=== PATIENT | male | born 1945 | race Caucasian/White ===

== ENCOUNTER 2021-10-12 12:28 | Day surgery (SDC) | payer MEDICARE, BC ==
[2021-10-11 14:05] LABS: BASOPHILS % (AUTO) 0.8 % (0-1); EOSINOPHILS # (AUTO) 0.3 X10'3 (0-0.9); EOSINOPHILS % (AUTO) 5.8 % (0-6); LYMPHOCYTES # (AUTO) 1.1 X10'3 (1.1-4.8); LYMPHOCYTES % (AUTO) 21.5 % (21-51); MEAN CORPUSCULAR HEMOGLOBIN 31.8 PG (27.0-31.0); MEAN CORPUSCULAR HGB CONC 33.9 g/dL (33.0-36.5); MEAN CORPUSCULAR VOLUME 93.6 FL (78-98); MONOCYTES # (AUTO) 0.7 X10'3 (0-0.9); NEUTROPHILS % (AUTO) 57.9 % (42-75); PRE OP HEMATOCRIT 43.6 % (42.0-52.0); PRE OP HEMOGLOBIN 14.8 g/dL (14.0-17.9); PRE OP PLATELET COUNT 175 X10'3 (140-440); RED BLOOD COUNT 4.66 X10'6 (4.70-6.10); RED CELL DISTRIBUTION WIDTH 13.6 % (11.5-14.5)
[2021-10-11 14:14] LABS: ALBUMIN 3.7 G/DL (3.4-5.0); ALBUMIN/GLOBULIN RATIO 1.1 (1.1-1.5); ALKALINE PHOSPHATASE 58 IU/L (46-116); BLOOD UREA NITROGEN 19 MG/DL (7-18); BUN/CREATININE RATIO 15.7 (5.4-32.0); CALCIUM 9.2 MG/DL (8.5-10.1); CHLORIDE 106 MMOL/L (99-107); CREATININE 1.21 MG/DL (0.60-1.10); PRE OP ALT 18 U/L (30-65); PRE OP ANION GAP 7 (8-16); PRE OP AST 16 U/L (10-37); PRE OP BILIRUB, TOTAL 0.8 MG/DL (0.0-1.0); PRE OP GLUCOSE 104 MG/DL (70-104); PRE OP POTASSIUM 4.2 MMOL/L (3.4-5.1); PRE OP SODIUM 140 MMOL/L (135-145); TOTAL PROTEIN 7.1 G/DL (6.4-8.2); eGFR 58 ML/MIN
[2021-10-12] VITALS (12 sets, daily range): BP systolic 122–149; BP diastolic 53–103
[~2021-10-12] VITALS: Ht 175.3 cm; Wt 75.7 kg
[~2021-10-12 12:28] MED LIST: GABA600T13 PO; HYDR50TA65 PO; QUET100T34 PO; ceFAZolin inj. 2,000 MG in dextrose 5%-water 100 ML IV ONE; famotidine 20mg tablet PO ONE; ringers solution, lacted 1,000 ML IV SCH
--- NOTE | 2021-10-12 12:45 | NUR ---
PT PREPARED FOR SURGERY, IV STARTED IN LEFT HAND WITHOUT DIFFICULTY. PT HAS HEARING AIDS BUT DID NOT BRING THEM WITH HIM. 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
[2021-10-12] MEDS ORDERED: morphine 4 MG/ML inj SYRINge IV PRN (14:40)
[2021-10-12] MEDS ORDERED: ondansetron/PF 4mg/2ml inj IV PRN (14:40)
[2021-10-12] MEDS ORDERED: ringers solution, lacted 1,000 ML IV SCH (14:40)
[2021-10-12] MEDS ORDERED: meperidine/PF 25mg/ml syringe IV PRN ×3 (14:40)
[2021-10-12] MEDS ORDERED: morphine 2 MG/ML inj. syringe IV PRN (14:40)
[2021-10-12] MEDS ORDERED: proCHLORperazine 10 MG/2 ml inj IV PRN (14:40)
[2021-10-12] MEDS ORDERED: LIDOcaine 1% 30ml preserv. free vial ONE (15:36)
[2021-10-12] MEDS ORDERED: BUPIVAcaine/PF 2.5 mg/ml (0.25%) 30ml vial ONE (15:36)
[2021-10-12] MEDS ORDERED: dexamethasone sod phosphate 10mg/ml inj ONE (15:43)
[2021-10-12] MEDS ORDERED: desflurane 240ml liquid inh. IH ONE (15:43)
[2021-10-12] MEDS ORDERED: midazolam 1 mg/ML 2ml injection ONE (15:49)
[2021-10-12] MEDS ORDERED: fentaNYL/PF 50MCG/1 ML 2ML syringe ONE (15:49)
[2021-10-12] MEDS ORDERED: propofol inj 20 ML IV ONE (16:02)
[2021-10-12] MEDS ORDERED: ondansetron/PF 4mg/2ml inj ONE (16:02)
[2021-10-12] MEDS ORDERED: LIDOcaine 1%/PF 5ML 10 MG/ML VIAL ONE (16:02)
[2021-10-12] MEDS ORDERED: rocuronium 10mg/ml inj IV ONE (16:02)
[2021-10-12] MEDS ORDERED: acetaminophen 1,000mg/100ml IV 100 ML IV ONE (16:55)
[2021-10-12] MEDS ORDERED: glycopyrrolate 0.2mg/ml inj ONE (17:00)
[2021-10-12] MEDS ORDERED: neostigmine methylsulfate 1 MG/ML 10ml vial ONE (17:00)
[2021-10-12] MEDS ORDERED: HYDROcodone/acetaminophen 5mg/325mg tablet PO PRN (17:15)
[2021-10-12] MEDS ORDERED: LIDOcaine 2% 10ml TOPICAL JELLY (Urojet) MM ONE (19:15)
--- NOTE | 2021-10-12 19:20 | NUR ---
EXPLAINED PATIENT ABOUT THE RISK AND BENEFIT OF USING NOLAN CATHETER. HE STATED THAT HE UNDERSTAND IT AND STILL WANT TO ATTEMPT TO URINATE AT THIS TIME. PATIENT IS AWARE ABOUT THE RISK OF NOT HAVING NOLAN CATHETER AFTER KNOWING THE BLADDER SCANNER REVEAL 602 CC OF URINE. PATIENT AGREES TO HAVE NOLAN CATHETER BEFORE DISCHARGE. NOLAN EDUCATION FORMS PROVIDED FOR THE PATIENT AND ALL QUESTIONS ANSWERED. Addendum: 10/12/21 at 1940 by Sudheer Chaparro RN Amended: Links added.
--- NOTE | 2021-10-12 20:00 | NUR ---
APPLIED UROJET INTO PATIENT'S PENIS. AND FOLLOWED BY INSERTING NOLAN CATHETER IN STERILE WAY. RN NOTED 1100 CC OF URINE. PATIENT TOLERATED PROCEDURE WELL. NO S/S OF DISTRESS AT THIS TIME. RN EXPLAINED TO FOLLOW UP WITH MD 2 DAYS LATER AT HIS OFFICE TO DISCONTINUE NOLAN CATH. PATIENT DEMONSTRATED CARE AND EMPTYING NOLAN CATHETER AND PATIENT VERBALIZED UNDERSTANDING. ALL QUESTIONS ANSWERED. Addendum: 10/12/21 at 2029 by Sudheer Chaparro RN Amended: Links added.
--- NOTE | 2021-10-12 20:28 | NUR ---
ALL DISCHARGE CRITERIA HAS BEEN MET. VSS, PAIN AT A TOLERABLE LEVEL, ABLE TO SAFELY AMBULATE AND TRANSFER SELF. IV TAKEN OUT WITHOUT ANY COMPLICATIONS. ALL DISCHARGE INSTRUCTIONS COVERED WITH PATIENT AND ALL QUESTIONS ANSWERED. PATIENT TAKEN OUT VIA WHEELCHAIR TO PERSONAL VEHICLE WHERE FRIEND DROVE PATIENT HOME. SEE OTHER NOTE REGARDING NOLAN CATHETER Addendum: 10/12/21 at 2032 by Sudheer Chaparro RN Amended: Links added.
== END 2021-10-12 20:28 | disposition home or self-care (01) ==
LOC: PAS 12:28
PROVIDERS: ATTEND Surgery
DX: K42.9 Umbilical hernia without obstruction or gangrene (principal); K40.90 Unilateral inguinal hernia, without obstruction or gangrene, not specified as recurrent; N18.30 Chronic kidney disease, stage 3 unspecified; G62.9 Polyneuropathy, unspecified; Z79.899 Other long term (current) drug therapy; Z20.822 Contact with and (suspected) exposure to COVID-19; Z87.891 Personal history of nicotine dependence; Z98.890 Other specified postprocedural states; Z79.82 Long term (current) use of aspirin; Z72.89 Other problems related to lifestyle; Z82.49 Family history of ischemic heart disease and other diseases of the circulatory system
CPT/HCPCS: 36415; 49585; 49650; 80053; 82948; 85025; 87635; 93005; C1781; C9803; J0131; J0690; J1100; J2250; J2405; J2704; J2710; J3010; J3490; J7030; J7060; J7120; Z7506; Z7508; Z7512; A4215; A4618

== ENCOUNTER 2024-02-22 11:23 | Outpatient (CLI) | payer MEDICARE, BC ==
[~2024-02-22 11:23] MED LIST changes: -ceFAZolin inj. 2,000 MG in dextrose 5%-water 100 ML IV ONE; -famotidine 20mg tablet PO ONE; -ringers solution, lacted 1,000 ML IV SCH
== END 2024-02-22 23:59 | disposition home or self-care (01) ==
LOC: RAD 11:23
PROVIDERS: ATTEND Orthopaedic Surgery
DX: M19.011 Primary osteoarthritis, right shoulder (principal); M75.111 Incomplete rotator cuff tear or rupture of right shoulder, not specified as traumatic; J43.9 Emphysema, unspecified; M25.411 Effusion, right shoulder; M25.511 Pain in right shoulder; M25.811 Other specified joint disorders, right shoulder
CPT/HCPCS: 73200